=== PATIENT | female | born 1990 | race Two or more races ===

== ENCOUNTER 2017-09-05 05:41 | Inpatient (IN) | payer MEDICAID, OTHER ==
[~2017-09-05 05:41] MED LIST: Citric Acid/Sodium Citrate Solution 30 ML Cup PO ONE; Lactated Ringers 1,000 ML IV SCH; Metoclopramide 10 MG/2 ML SDV IVPUSH ONE; Sodium Chloride 0.9% 10 ML Syringe FLUSH PRN; ceFAZolin 2 GM in Premix Bag 1 BAG IV ONE
[2017-09-05] MEDS ORDERED: Ondansetron 4 MG/2 ML SDV ONE (06:26)
[2017-09-05] MEDS ORDERED: ceFAZolin 1 GM Vial ONE (06:26)
[2017-09-05] MEDS ORDERED: Oxytocin 10 Units/1 ML SDV ONE (06:26)
[2017-09-05] MEDS ORDERED: Phenylephrine 1% 10 MG/ML SDV ONE (06:26)
[2017-09-05] MEDS ORDERED: Lactated Ringers 2,000 ML ONE (06:26)
[2017-09-05] MEDS ORDERED: Lidocaine 1% 4 ML ONE (06:26)
[2017-09-05] MEDS ORDERED: Ketorolac 30 MG/ML SDV ONE (06:26)
[2017-09-05] MEDS ORDERED: Morphine PF 10 MG/10 ML SDV ONE (06:27)
[2017-09-05] MEDS ORDERED: Bupivacaine 0.75%/D5W 2 ML Amp ONE (06:28)
--- NOTE | 2017-09-05 06:53 | PCM.PREANE ---
Preanesthetic Assessment - Anesthesia/Transfusion/Family Hx Anesthesia History: Prior Anesthesia Without Reaction Family History of Anesthesia Reaction: No Transfusion History: No Prior Transfusion(s) Intubation History: Unknown - Review of Systems General: No Symptoms Pulmonary: No Symptoms, Cough Cardiovascular: No Symptoms Gastrointestinal: No Symptoms (GERD) Neurological: No Symptoms Other: Reports: Depression, Anxiety - Physical Assessment NPO Status Date: 09/04/17 NPO Status Time: 20:00 Pulse: 76 O2 Sat by Pulse Oximetry: 98 Respiratory Rate: 16 Blood Pressure: 118/87 Temperature: 37.1 C Height: 1.65 m Weight: 80.739 kg ASA Class: 2 Mental Status: Alert & Oriented x3 Airway Class: Mallampati = 2 Dentition: Reports: Normal Dentition (bottom retainer noted), Caries Thyro-Mental Finger Breadths: 3 Mouth Opening Finger Breadths: 3 ROM/Head Extension: Full Lungs: Clear to Auscultation, Normal Respiratory Effort Cardiovascular: Regular Rate, Regular Rhythm, No Murmurs - Lab Values: Laboratory Last Values WBC 10.53 K/mm3 (3.98-10.04) H 09/05/17 06:19 RBC 3.89 M/mm3 (3.98-5.22) L 09/05/17 06:19 Hgb 11.7 gm/L (11.2-15.7) 09/05/17 06:19 Hct 33.7 % (34.1-44.9) L 09/05/17 06:19 MCV 86.6 fl (79.4-94.8) 09/05/17 06:19 MCH 30.1 pg (25.6-32.2) 09/05/17 06:19 MCHC 34.7 g/dl (32.2-35.5) 09/05/17 06:19 RDW Std Deviation 39.4 fL (36.4-46.3) 09/05/17 06:19 Plt Count 224 K/mm3 (182-369) 09/05/17 06:19 MPV 11.3 fl (9.4-12.3) 09/05/17 06:19 Above labs reviewed and noted. - Allergies Allergies/Adverse Reactions: Allergies Allergy/AdvReac Type Severity Reaction Status Date / Time Sulfa (Sulfonamide Allergy Hives Verified 09/05/17 02:33 Antibiotics) - Anesthesia Plan Pre-Op Medication Ordered: None - Acknowledgements Anesthesia Type Planned: Spinal Pt an Appropriate Candidate for the Planned Anesthesia: Yes Alternatives and Risks of Anesthesia Discussed w Pt/Guardian: Yes Pt/Guardian Understands and Agrees with Anesthesia Plan: Yes PreAnesthesia Questionnaire - CURRENT (IN HOUSE) MEDS Current Meds: Current Medications Lactated Ringer's (Ringers, Lactated) 1,000 mls @ 125 mls/hr IV ASDIRECTED [facility] Sodium Chloride (Saline Flush) 10 ml FLUSH ASDIRECTED PRN PRN Reason: Keep Vein Open Discontinued Medications Bupivacaine HCl/Dextrose (Marcaine 0.75% Spinal) Confirm Administered Dose 2 ml .ROUTE .STK-MED ONE Stop: 09/05/17 06:29 Cefazolin Sodium (Ancef) Confirm Administered Dose 2 gm .ROUTE .STK-MED ONE Stop: 09/05/17 06:27 Citric Acid/Sodium Citrate (Bicitra Solution) 30 ml PO ONETIME ONE Stop: 09/05/17 05:01 Cefazolin Sodium/Dextrose 2 gm (/ Premix) 50 mls @ 100 mls/hr IV ONETIME ONE Stop: 09/05/17 03:29 Cefazolin Sodium/Dextrose 2 gm (/ Premix) 50 mls @ 100 mls/hr IV ONETIME ONE Stop: 09/05/17 05:29 Lidocaine HCl (Xylocaine-Mpf 1%) Confirm Administered Dose 4 mls @ as directed .ROUTE .STK-MED ONE Stop: 09/05/17 06:27 Lactated Ringer's (Ringers, Lactated) Confirm Administered Dose 2,000 mls @ as directed .ROUTE .STK-MED ONE Stop: 09/05/17 06:27 Ketorolac Tromethamine (Toradol) Confirm Administered Dose 30 mg .ROUTE .STK- MED ONE Stop: 09/05/17 06:27 Metoclopramide HCl (Reglan) 10 mg IVPUSH ONETIME ONE Stop: 09/05/17 05:01 Morphine Sulfate (Duramorph Pf) Confirm Administered Dose 20 mg .ROUTE .STK-MED ONE Stop: 09/05/17 06:28 Ondansetron HCl (Zofran) Confirm Administered Dose 4 mg .ROUTE .STK-MED ONE Stop: 09/05/17 06:27 Oxytocin (Pitocin) Confirm Administered Dose 10 unit .ROUTE .STK-MED ONE Stop: 09/05/17 06:27 Phenylephrine HCl (Arden-Synephrine) Confirm Administered Dose 10 mg .ROUTE .STK- MED ONE Stop: 09/05/17 06:27
[2017-09-05] MEDS ORDERED: Metoclopramide 10 MG/2 ML SDV ONE (06:55)
[2017-09-05] MEDS ORDERED: Lactated Ringers 1,000 ML ONE ×2 (06:56→08:03)
[2017-09-05] MEDS ORDERED: Citric Acid/Sodium Citrate Solution 30 ML Cup ONE (06:57)
[2017-09-05] MEDS ORDERED: Bupivacaine 0.5% 30 ML SDV ONE (07:24)
[2017-09-05] MEDS ORDERED: ePHEDrine 50 MG/ML SDV IVPUSH PRN ×2 (08:08→12:19)
[2017-09-05] MEDS ORDERED: diphenhydrAMINE 50 MG/ML SDV IVPUSH PRN ×2 (08:08→12:19)
[2017-09-05] MEDS ORDERED: fentaNYL 100 MCG/2 ML SDV IVPUSH PRN (08:08)
[2017-09-05] MEDS ORDERED: Meperidine PF 50 MG/ML Syringe IVPUSH PRN (08:08)
[2017-09-05] MEDS ORDERED: Ondansetron 4 MG/2 ML SDV IVPUSH PRN ×2 (08:08→15:24)
[2017-09-05] MEDS ORDERED: Phenylephrine 1 MG in Sodium Chloride 0.9% 10 ML IV SCH (08:15)
[2017-09-05] MEDS ORDERED: Ibuprofen 600 MG Tab PO PRN ×2 (08:30→12:19)
--- NOTE | 2017-09-05 09:06 | PCM.OPNOTE ---
- General Post-Op/Procedure Note Date of Surgery/Procedure: 09/05/17 Operative Procedure(s): repeat Findings: Viable female weight 8 lbs. 15 oz. Apgars 8/9 normal uterus tubes and ovaries, polyhydramnios Pre Op Diagnosis: Prior section 39+ weeks Post-Op Diagnosis: Same Anesthesia Technique: Spinal Primary Surgeon: Loni Campos Director Surface Transportation: Morena Villalobos Reason Director Surface Transportation Was Necessary: Patient safety, retraction EBL in mLs: 400 Complications: None Condition: Good Free Text/Narrative:: The patient was taken to the operating room where epidural anesthesia was dosed to surgical levels without difficulty. The patient was prepped and draped in the usual sterile fashion in the dorsal supine position with a leftward tilt. A Pfannenstiel skin incision was made with the scalpel and carried through to the underlying layer of fascia. The fascia was incised in the midline and extended laterally using Ledezma scissors. Ailyn clamps were used to elevate the superior aspect of the fascial incision, which was elevated, and the underlying rectus muscles were dissected off bluntly and using Ledezma scissors. Attention was then turned to the inferior aspect of the fascial incision, which in similar fashion was grasped with Ailyn clamps, elevated, and the underlying rectus muscles were dissected off bluntly and using the ledezma. The rectus muscles were dissected in the midline. The peritoneum was entered bluntly; this incision was extended superiorly and inferiorly with good visualization of the bladder. The bladder blade was inserted. The vesicouterine peritoneum was identified and entered sharply using Metzenbaum scissors. This incision was extended laterally and the bladder flap was created digitally. The bladder blade was reinserted. The lower uterine segment was incised in a transverse fashion using the scalpel and with digital traction. Clear fluid was noted. The infant was subsequently delivered by flexing the head to the incision. Body and shoulders followed without difficulty. The cord was clamped and cut. The was subsequently handed to the awaiting spark tester whose presence had been requested.. The placenta was delivered spontaneously intact with a three-vessel cord noted. The uterus was exteriorized and cleared of all clots and debris. The uterine incision was repaired in 2 layers using 0 monocryl. Hemostasis was visualized. Hemostasis was visualized bilaterally. The uterus was returned to the abdomen. The uterine incision was reexamined and it was noted to be hemostatic. The pelvis was copiously irrigated. The fascia was closed with 1 PDS suture, and the skin was closed with 3-0 monocryl. Sponge, lap, and instrument counts were correct x2. The patient was stable at the completion of the procedure and was subsequently transferred to the recovery room in stable condition.
--- NOTE | 2017-09-05 09:30 | PCM.POSTAN ---
POST ANESTHESIA ASSESSMENT - MENTAL STATUS Mental Status: Alert - VITAL SIGNS Pulse Rate: 68 SaO2: 96 Resp Rate: 12 Blood Pressure: 111/62 Temperature: 36.4 C - RESPIRATORY Respiratory Status: Respiratory Rate WNL, Airway Patent, O2 Saturation Stable - CARDIOVASCULAR CV Status: Pulse Rate WNL, Blood Pressure Stable - GASTROINTESTINAL GI Status: No Symptoms - POST OP HYDRATION Hydration Status: Adequate & Stable
[2017-09-05] MEDS ORDERED: Naloxone 0.4 MG/ML SDV IVPUSH PRN (12:19)
[2017-09-05] MEDS ORDERED: Lanolin 100% Cream 7 GM Tube TOP PRN (12:19)
[2017-09-05] MEDS ORDERED: Ketorolac 30 MG/ML SDV IVPUSH SCH (12:19)
[2017-09-05] MEDS: Dextrose 5%-Lactated Ringers 1,000 ML IV SCH ×2 (13:48→15:44)
[2017-09-05] MEDS: Ketorolac 30 MG/ML SDV IVPUSH SCH ×2 (15:19→20:40)
[2017-09-05] MEDS ORDERED: Dextrose 5%-Lactated Ringers 1,000 ML IV SCH (16:00)
[2017-09-06] MEDS: Ketorolac 30 MG/ML SDV IVPUSH SCH (02:36)
--- NOTE | 2017-09-06 07:24 | PCM.PNPP ---
- General Info Date of Service: 09/06/17 Functional Status: Reports: Pain Controlled - Review of Systems General: Reports: No Symptoms HEENT: Reports: No Symptoms Pulmonary: Reports: No Symptoms Cardiovascular: Reports: No Symptoms Gastrointestinal: Reports: No Symptoms Genitourinary: Reports: No Symptoms Musculoskeletal: Reports: No Symptoms Skin: Reports: No Symptoms Neurological: Reports: No Symptoms Psychiatric: Reports: No Symptoms - Patient Data Vital Signs - Most Recent: Last Vital Signs Temp 36.6 C 09/06/17 05:06 Pulse 68 09/06/17 07:00 Resp 16 09/06/17 07:00 BP 107/75 09/06/17 05:06 Pulse Ox 98 09/06/17 07:00 Weight - Most Recent: 80.739 kg I&O - Last 24 Hours: Intake & Output 09/05/17 09/06/17 09/06/17 22:59 06:59 14:59 Intake Total 240 Output Total 275 1750 Balance -35 -1750 Lab Results - Last 24 Hours: Laboratory Results - last 24 hr 09/05/17 Range/Units 06:19 RPR Non-reactive (NONREACTIVE) Med Orders - Current: Current Medications Diphenhydramine HCl (Benadryl) 25 mg IVPUSH Q6H PRN PRN Reason: Itching or Nausea Emollient Ointment (Lansinoh Hpa) 0 gm TOP ASDIRECTED PRN PRN Reason: Sore Nipples Ephedrine Sulfate (Ephedrine Sulfate) 5 mg IVPUSH SEECOMMENT PRN PRN Reason: Other Dextrose/Lactated Ringer's (Dextrose 5%-Lactated Ringers) 1,000 mls @ 125 mls/ hr IV ASDIRECTED [facility] Last Admin: 09/05/17 18:12 Dose: 125 mls/hr Ibuprofen (Motrin) 600 mg PO Q6H PRN PRN Reason: mild pain or fever Naloxone HCl (Narcan) 0.1 mg IVPUSH SEECOMMENT PRN PRN Reason: Respiratory Depression Ondansetron HCl (Zofran) 4 mg IVPUSH Q4H PRN PRN Reason: Nausea Last Admin: 09/05/17 15:46 Dose: 4 mg Discontinued Medications Bupivacaine HCl (Marcaine 0.5%) Confirm Administered Dose 30 ml .ROUTE .STK-MED ONE Stop: 09/05/17 07:25 Bupivacaine HCl/Dextrose (Marcaine 0.75% Spinal) Confirm Administered Dose 2 ml .ROUTE .STK-MED ONE Stop: 09/05/17 06:29 Cefazolin Sodium (Ancef) Confirm Administered Dose 2 gm .ROUTE .STK-MED ONE Stop: 09/05/17 06:27 Citric Acid/Sodium Citrate (Bicitra Solution) 30 ml PO ONETIME ONE Stop: 09/05/17 05:01 Last Admin: 09/05/17 07:05 Dose: 30 ml Citric Acid/Sodium Citrate (Bicitra Solution) Confirm Administered Dose 30 ml .ROUTE .STK-MED ONE Stop: 09/05/17 06:58 Last Admin: 09/05/17 13:50 Dose: Not Given Diphenhydramine HCl (Benadryl) 25 mg IVPUSH Q6H PRN PRN Reason: pruritis Ephedrine Sulfate (Ephedrine Sulfate) 5 mg IVPUSH ASDIRECTED PRN PRN Reason: Hypotension Fentanyl (Sublimaze) 50 mcg IVPUSH Q5M PRN PRN Reason: Pain Lactated Ringer's (Ringers, Lactated) 1,000 mls @ 125 mls/hr IV ASDIRECTED [facility] Last Admin: 09/05/17 07:06 Dose: 999 mls/hr Cefazolin Sodium/Dextrose 2 gm (/ Premix) 50 mls @ 100 mls/hr IV ONETIME ONE Stop: 09/05/17 03:29 Last Admin: 09/05/17 13:49 Dose: Not Given Cefazolin Sodium/Dextrose 2 gm (/ Premix) 50 mls @ 100 mls/hr IV ONETIME ONE Stop: 09/05/17 05:29 Last Admin: 09/05/17 13:49 Dose: Not Given Lidocaine HCl (Xylocaine-Mpf 1%) Confirm Administered Dose 4 mls @ as directed .ROUTE .STK-MED ONE Stop: 09/05/17 06:27 Lactated Ringer's (Ringers, Lactated) Confirm Administered Dose 2,000 mls @ as directed .ROUTE .STK-MED ONE Stop: 09/05/17 06:27 Lactated Ringer's (Ringers, Lactated) Confirm Administered Dose 1,000 mls @ as directed .ROUTE .STK-MED ONE Stop: 09/05/17 06:57 Last Admin: 09/05/17 13:51 Dose: Not Given Lactated Ringer's (Ringers, Lactated) Confirm Administered Dose 1,000 mls @ as directed .ROUTE .STK-MED ONE Stop: 09/05/17 08:04 Phenylephrine HCl 1 mg/ Sodium (Chloride) 10.1 mls @ 1 mls/sec IV TITRATE [facility]; Protocol Dextrose/Lactated Ringer's (Dextrose 5%-Lactated Ringers) 1,000 mls @ 125 mls/ hr IV ASDIRECTED [facility] Stop: 09/05/17 20:18 Last Admin: 09/05/17 15:44 Dose: 125 mls/hr Ibuprofen (Motrin) 600 mg PO Q6H PRN PRN Reason: mild pain or fever Ibuprofen (Motrin) 600 mg PO Q6H PRN PRN Reason: mild pain or fever Ketorolac Tromethamine (Toradol) Confirm Administered Dose 30 mg .ROUTE .STK- MED ONE Stop: 09/05/17 06:27 Ketorolac Tromethamine (Toradol) 30 mg IVPUSH Q6H [facility] Stop: 09/06/17 00:20 Last Admin: 09/05/17 16:27 Dose: Not Given Ketorolac Tromethamine (Toradol) 30 mg IVPUSH Q6H [facility] Stop: 09/06/17 02:31 Last Admin: 09/06/17 02:36 Dose: 30 mg Meperidine HCl (Demerol) 12.5 mg IVPUSH ONETIME PRN PRN Reason: shivering Metoclopramide HCl (Reglan) 10 mg IVPUSH ONETIME ONE Stop: 09/05/17 05:01 Last Admin: 09/05/17 07:05 Dose: 10 mg Metoclopramide HCl (Reglan) Confirm Administered Dose 10 mg .ROUTE .STK-MED ONE Stop: 09/05/17 06:56 Last Admin: 09/05/17 13:49 Dose: 10 mg Morphine Sulfate (Duramorph Pf) Confirm Administered Dose 20 mg .ROUTE .STK-MED ONE Stop: 09/05/17 06:28 Ondansetron HCl (Zofran) Confirm Administered Dose 4 mg .ROUTE .STK-MED ONE Stop: 09/05/17 06:27 Ondansetron HCl (Zofran) 4 mg IVPUSH ONETIME PRN PRN Reason: Nausea/Vomiting Oxytocin (Pitocin) Confirm Administered Dose 10 unit .ROUTE .STK-MED ONE Stop: 09/05/17 06:27 Phenylephrine HCl (Arden-Synephrine) Confirm Administered Dose 10 mg .ROUTE .STK- MED ONE Stop: 09/05/17 06:27 Sodium Chloride (Saline Flush) 10 ml FLUSH ASDIRECTED PRN PRN Reason: Keep Vein Open - Interaction Infant Disposition, : [place] at Bedside Infant Interaction: Holding Infant Support Person: Other (see below) - Recovery Exam Fundal Tone: Firm Fundal Level: 2 Fingerbreadths Below Umbilicus Fundal Placement: Midline Lochia Amount: Small Lochia Color: Rubra/Red Perineum Description: Intact, Minimal Bruising/Swelling Episiotomy/Laceration: None Bladder Status: Indwelling Catheter in Place Urinary Elimination: Indwelling Catheter - Exam General: Alert, Oriented HEENT: Pupils Equal Neck: Supple Lungs: Clear to Auscultation, Normal Respiratory Effort Cardiovascular: Regular Rate, Regular Rhythm GI/Abdominal Exam: Normal Bowel Sounds, Soft, Non-Tender, No Organomegaly, No Distention, No Abnormal Bruit, No Mass, Pelvis Stable Extremities: Normal Inspection, Normal Range of Motion, Non-Tender, No Pedal Edema, Normal Capillary Refill Skin: Warm, Dry, Intact Wound/Incisions: Healing Well Neurological: No New Focal Deficit Psy/Mental Status: Alert, Normal Affect, Normal Mood - Problem List Review Problem List Initiated/Reviewed/Updated: Yes - My Orders Last 24 Hours: My Active Orders 09/05/17 12:19 Patient Status [ADT] Routine Communication Order [RC] PER UNIT ROUTINE Communication Order [RC] PER UNIT ROUTINE Notify Provider Intake and Out [RC] ASDIRECTED Vital Signs [RC] Q1HR Lanolin [Lansinoh HPA] See Dose Instructions TOP ASDIRECTED PRN Naloxone [Narcan] 0.1 mg IVPUSH SEECOMMENT PRN diphenhydrAMINE [Benadryl] 25 mg IVPUSH Q6H PRN ePHEDrine [ePHEDrine Sulfate] 5 mg IVPUSH SEECOMMENT PRN Assess Lochia [WOMSER] Per Unit Routine Assess Uterine Involution [WOMSER] Per Unit Routine Medication Administration Instruction [OM.PC] Routine 09/05/17 15:24 Ondansetron [Zofran] 4 mg IVPUSH Q4H PRN 09/05/17 16:00 Dextrose 5%-Lactated Ringers 1,000 ml IV ASDIRECTED 09/05/17 Lunch Regular Diet [DIET] 09/06/17 08:30 Ibuprofen [Motrin] 600 mg PO Q6H PRN 09/06/17 10:39 Urinary Catheter Removal [RC] Per Unit Routine - Assessment Assessment:: POD 1 Doing well. - Plan Plan:: Routine postop care, likely discharge tomorrow.
--- NOTE | 2017-09-06 07:50 | PCM48HPAN ---
Post Anesthesia Note - EVALUATION WITHIN 48HRS OF ANESTHETIC Vital Signs in Normal Range: Yes Patient Participated in Evaluation: Yes Respiratory Function Stable: Yes Airway Patent: Yes Cardiovascular Function Stable: Yes Hydration Status Stable: Yes Pain Control Satisfactory: Yes Nausea and Vomiting Control Satisfactory: Yes Mental Status Recovered: Yes Pulse Rate: 64 Resp Rate: 16 Temperature: 36.9 C Blood Pressure: 104/70 - COMMENTS/OBSERVATIONS Free Text/Narrative:: Billa denies any anesthetic complications.
[2017-09-06] MEDS: Ibuprofen 600 MG Tab PO PRN ×3 (08:28→23:06)
[2017-09-06] MEDS ORDERED: Docusate Sodium 100 MG Cap PO PRN (18:10)
--- NOTE | 2017-09-07 06:14 | PCM.DCSUM1 ---
Discharge Summary - Hospital Course Diagnosis: Stroke: No - Discharge Data Discharge Date: 09/07/17 Discharge Disposition: Home, Self-Care 01 Condition: Good - Patient Summary/Data Operative Procedure(s) Performed: repeat - Patient Instructions Diet: Usual Diet as Tolerated Activity: No Strenuous Activities Driving: May Drive Today Showering/Bathing: May Shower Wound/Incision Care: Keep Operative Site/Wound Site Clean and Dry Notify Provider of: Fever, Increased Pain, Swelling and Redness, Drainage, Nausea and/or Vomiting - Discharge Plan Prescriptions/Med Rec: Ibuprofen [Motrin] 600 mg PO Q6H PRN #60 tablet PRN Reason: Abdominal Pain Home Medications: Home Meds Ibuprofen [Motrin] 600 mg PO Q6H PRN #60 tablet 09/07/17 [Rx] Referrals: Loni Campos MD [Primary Care Provider] - (2 weeks) - Discharge Summary/Plan Comment DC Time >30 min.: No - General Info Date of Service: 09/07/17 Functional Status: Reports: Pain Controlled - Review of Systems General: Reports: No Symptoms HEENT: Reports: No Symptoms Pulmonary: Reports: No Symptoms Cardiovascular: Reports: No Symptoms Gastrointestinal: Reports: No Symptoms Genitourinary: Reports: No Symptoms Musculoskeletal: Reports: No Symptoms Skin: Reports: No Symptoms Neurological: Reports: No Symptoms Psychiatric: Reports: No Symptoms - Patient Data Vitals - Most Recent: Last Vital Signs Temp 36.8 C 09/06/17 20:07 Pulse 65 09/06/17 20:07 Resp 1 L 09/06/17 20:07 BP 106/64 09/06/17 20:07 Pulse Ox 97 09/06/17 20:07 Weight - Most Recent: 80.739 kg I&O - Last 24 hours: Intake & Output 09/06/17 09/06/17 09/07/17 14:59 22:59 06:59 Intake Total 640 180 Balance 640 180 Med Orders - Current: Current Medications Diphenhydramine HCl (Benadryl) 25 mg IVPUSH Q6H PRN PRN Reason: Itching or Nausea Docusate Sodium (Colace) 100 mg PO BID PRN PRN Reason: Constipation Last Admin: 09/07/17 03:54 Dose: 100 mg Emollient Ointment (Lansinoh Hpa) 0 gm TOP ASDIRECTED PRN PRN Reason: Sore Nipples Ephedrine Sulfate (Ephedrine Sulfate) 5 mg IVPUSH SEECOMMENT PRN PRN Reason: Other Dextrose/Lactated Ringer's (Dextrose 5%-Lactated Ringers) 1,000 mls @ 125 mls/ hr IV ASDIRECTED [facility] Last Admin: 09/05/17 18:12 Dose: 125 mls/hr Ibuprofen (Motrin) 600 mg PO Q6H PRN PRN Reason: mild pain or fever Last Admin: 09/06/17 23:06 Dose: 600 mg Naloxone HCl (Narcan) 0.1 mg IVPUSH SEECOMMENT PRN PRN Reason: Respiratory Depression Ondansetron HCl (Zofran) 4 mg IVPUSH Q4H PRN PRN Reason: Nausea Last Admin: 09/05/17 15:46 Dose: 4 mg Discontinued Medications Bupivacaine HCl (Marcaine 0.5%) Confirm Administered Dose 30 ml .ROUTE .STK-MED ONE Stop: 09/05/17 07:25 Bupivacaine HCl/Dextrose (Marcaine 0.75% Spinal) Confirm Administered Dose 2 ml .ROUTE .STK-MED ONE Stop: 09/05/17 06:29 Cefazolin Sodium (Ancef) Confirm Administered Dose 2 gm .ROUTE .STK-MED ONE Stop: 09/05/17 06:27 Citric Acid/Sodium Citrate (Bicitra Solution) 30 ml PO ONETIME ONE Stop: 09/05/17 05:01 Last Admin: 09/05/17 07:05 Dose: 30 ml Citric Acid/Sodium Citrate (Bicitra Solution) Confirm Administered Dose 30 ml .ROUTE .STK-MED ONE Stop: 09/05/17 06:58 Last Admin: 09/05/17 13:50 Dose: Not Given Diphenhydramine HCl (Benadryl) 25 mg IVPUSH Q6H PRN PRN Reason: pruritis Ephedrine Sulfate (Ephedrine Sulfate) 5 mg IVPUSH ASDIRECTED PRN PRN Reason: Hypotension Fentanyl (Sublimaze) 50 mcg IVPUSH Q5M PRN PRN Reason: Pain Lactated Ringer's (Ringers, Lactated) 1,000 mls @ 125 mls/hr IV ASDIRECTED [facility] Last Admin: 09/05/17 07:06 Dose: 999 mls/hr Cefazolin Sodium/Dextrose 2 gm (/ Premix) 50 mls @ 100 mls/hr IV ONETIME ONE Stop: 09/05/17 03:29 Last Admin: 09/05/17 13:49 Dose: Not Given Cefazolin Sodium/Dextrose 2 gm (/ Premix) 50 mls @ 100 mls/hr IV ONETIME ONE Stop: 09/05/17 05:29 Last Admin: 09/05/17 13:49 Dose: Not Given Lidocaine HCl (Xylocaine-Mpf 1%) Confirm Administered Dose 4 mls @ as directed .ROUTE .STK-MED ONE Stop: 09/05/17 06:27 Lactated Ringer's (Ringers, Lactated) Confirm Administered Dose 2,000 mls @ as directed .ROUTE .STK-MED ONE Stop: 09/05/17 06:27 Lactated Ringer's (Ringers, Lactated) Confirm Administered Dose 1,000 mls @ as directed .ROUTE .STK-MED ONE Stop: 09/05/17 06:57 Last Admin: 09/05/17 13:51 Dose: Not Given Lactated Ringer's (Ringers, Lactated) Confirm Administered Dose 1,000 mls @ as directed .ROUTE .STK-MED ONE Stop: 09/05/17 08:04 Phenylephrine HCl 1 mg/ Sodium (Chloride) 10.1 mls @ 1 mls/sec IV TITRATE [facility]; Protocol Dextrose/Lactated Ringer's (Dextrose 5%-Lactated Ringers) 1,000 mls @ 125 mls/ hr IV ASDIRECTED [facility] Stop: 09/05/17 20:18 Last Admin: 09/05/17 15:44 Dose: 125 mls/hr Ibuprofen (Motrin) 600 mg PO Q6H PRN PRN Reason: mild pain or fever Ibuprofen (Motrin) 600 mg PO Q6H PRN PRN Reason: mild pain or fever Ketorolac Tromethamine (Toradol) Confirm Administered Dose 30 mg .ROUTE .STK- MED ONE Stop: 09/05/17 06:27 Ketorolac Tromethamine (Toradol) 30 mg IVPUSH Q6H [facility] Stop: 09/06/17 00:20 Last Admin: 09/05/17 16:27 Dose: Not Given Ketorolac Tromethamine (Toradol) 30 mg IVPUSH Q6H [facility] Stop: 09/06/17 02:31 Last Admin: 09/06/17 02:36 Dose: 30 mg Meperidine HCl (Demerol) 12.5 mg IVPUSH ONETIME PRN PRN Reason: shivering Metoclopramide HCl (Reglan) 10 mg IVPUSH ONETIME ONE Stop: 09/05/17 05:01 Last Admin: 09/05/17 07:05 Dose: 10 mg Metoclopramide HCl (Reglan) Confirm Administered Dose 10 mg .ROUTE .STK-MED ONE Stop: 09/05/17 06:56 Last Admin: 09/05/17 13:49 Dose: 10 mg Morphine Sulfate (Duramorph Pf) Confirm Administered Dose 20 mg .ROUTE .STK-MED ONE Stop: 09/05/17 06:28 Ondansetron HCl (Zofran) Confirm Administered Dose 4 mg .ROUTE .STK-MED ONE Stop: 09/05/17 06:27 Ondansetron HCl (Zofran) 4 mg IVPUSH ONETIME PRN PRN Reason: Nausea/Vomiting Oxytocin (Pitocin) Confirm Administered Dose 10 unit .ROUTE .STK-MED ONE Stop: 09/05/17 06:27 Phenylephrine HCl (Arden-Synephrine) Confirm Administered Dose 10 mg .ROUTE .STK- MED ONE Stop: 09/05/17 06:27 Sodium Chloride (Saline Flush) 10 ml FLUSH ASDIRECTED PRN PRN Reason: Keep Vein Open - Exam General: Reports: Alert, Oriented HEENT: Reports: Pupils Equal, Pupils Reactive, EOMI, Mucous Membr. Moist/Gramling Neck: Reports: Supple Lungs: Reports: Clear to Auscultation, Normal Respiratory Effort Cardiovascular: Reports: Regular Rate, Regular Rhythm GI/Abdominal Exam: Normal Bowel Sounds, Soft, Non-Tender, No Organomegaly, No Distention, No Abnormal Bruit, No Mass, Pelvis Stable Rectal (Female) Exam: Normal Exam, Normal Rectal Tone Back Exam: Reports: Normal Inspection, Full Range of Motion Extremities: Normal Inspection, Normal Range of Motion, Non-Tender, No Pedal Edema, Normal Capillary Refill Skin: Reports: Warm, Dry, Intact Wound/Incisions: Reports: Healing Well Neurological: Reports: No New Focal Deficit Psy/Mental Status: Reports: Alert, Normal Affect, Normal Mood
[2017-09-07] MEDS: Ibuprofen 600 MG Tab PO PRN (08:09)
== END 2017-09-07 13:10 | disposition home or self-care (01) | DRG 765 ==
LOC: JD.OB 05:41 → EEVIPCON 08:00
PROVIDERS: ADMIT Obstetrics & Gynecology; ATTEND Obstetrics & Gynecology
PROC: 10D00Z1 Extraction of Products of Conception, Low, Open Approach (ICD-10-PCS; principal; 2017-09-05)
DX: O34.211 Maternal care for low transverse scar from previous cesarean delivery (principal); O99.323 Drug use complicating pregnancy, third trimester; O40.3XX0 Polyhydramnios, third trimester, not applicable or unspecified; Z3A.39 39 weeks gestation of pregnancy; Z37.0 Single live birth; F12.90 Cannabis use, unspecified, uncomplicated; Z88.2 Allergy status to sulfonamides
CPT/HCPCS: 01961; 36415; 59025; 85027; 86592; 86850; 86900; 86901; 94762; A9270-GY; J0690; J1200; J1885; J2001; J2175; J2270; J2370; J2405; J2590; J2765; J3010; J7042; J7120